=== PATIENT | male | born 1950 | race Caucasian/White ===

== ENCOUNTER → 2020-12-08 | Outpatient (CLI) | payer MEDICARE, OTHER ==
--- NOTE | 2020-12-08 16:49 | RAD ---
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 Instructions: / History: Comparison: February 25, 2005 Findings: No consolidation or pleural effusion. Normal heart size. No pneumothorax. Prior granulomatous disease within the chest. Impression: 1. No acute cardiopulmonary process. Electronically signed by: Mic Washington DO (12/08/2020 4:47 PM) [id number]
--- NOTE | 2020-12-08 17:07 | RAD ---
US THYROID History: Reason: THYROID NODULE / Spl. Instructions: HX OF BX ON RT, NEG FOR MALIGNANCY X 1 YEAR AGO / History: Comparison: None. Technique: Multiple grayscale and color Doppler images of the thyroid gland were obtained. Findings: Right thyroid lobe: 5.1 x 3.0 x 2.9 cm. Heterogeneous echotexture. Left thyroid lobe: 3.5 x 1.1 x 1.5 cm. Heterogeneous echotexture. Isthmus: 0.6 cm. -Heterogeneous solid the right thyroid mass with regions of hypoechogenicity and microcalcifications measures 4.0 x 2.9 x 2.9 cm. TI-RADS 5. ACR Thyroid Imaging, Reporting And Data System (TI-RADS): White Paper Of The ACR TI-RADS Committee. J ournal of the [employer], volume 14, issue 5, pages 587-595 (October 2016). IMPRESSION: 1. TI-RADS 5 right thyroid nodule. Recommend correlation with prior biopsy results and prior ultraso und. Electronically signed by: Mic Washington DO (12/08/2020 5:04 PM) [id number]
== END ==
LOC: US 10:41
PROVIDERS: ATTEND Otolaryngology
DX: E04.1 Nontoxic single thyroid nodule (principal)
CPT/HCPCS: 71046; 76536